=== PATIENT | male | born 1965 | race Caucasian/White ===

== ENCOUNTER 2019-11-02 16:01 | Observation (INO) ==
[2019-11-02] MEDS ORDERED: 0.9 % Sodium Chloride 1,000 ML IVC ONE (17:23)
[2019-11-02] MEDS ORDERED: Ipratropium/Albuterol Neb 3 ML IH ONE (17:23)
[2019-11-02] MEDS ORDERED: Clindamycin 600 MG/50 ML 600 MG/50 ML IV.SOLN IVPB STA (17:24)
[2019-11-02 17:48] LABS: Alanine Aminotransferase 40 Units/L (7-52); Albumin 4.2 g/dL (3.5-5.7); Albumin/Globulin Ratio 1.6 (1.1-2.2); Alkaline Phosphatase 69 Units/L (34-104); Aspartate Amino Transferase 36 Units/L (13-39); BUN/Creatinine Ratio 19 (6-26); Bilirubin,Total 0.6 mg/dL (0.3-1.0); Blood Urea Nitrogen 22 mg/dL (6-20); Calcium 9.3 mg/dL (8.6-10.3); Carbon Dioxide 26 mEq/L (23-29); Chloride 104 mEq/L (98-107); Globulin 2.7 g/dL (2.4-3.5); Glucose 144 mg/dL (70-105); Osmolality,Calculated 294 (280-300); Potassium 3.7 mEq/L (3.5-5.1); Sodium 139 mEq/L (136-145); Total Protein 6.9 g/dL (6.4-8.9); Troponin I 0.03 ng/mL (< 0.04); eGFR For African Americans > 60 (> 60); eGFR For Non-African Americans > 60 (> 60)
[2019-11-02 18:04] LABS: Basophils % 0.2 %; Eosinophils % 0.1 %; Hematocrit 51.1 % (37.5-50.1); Hemoglobin 16.9 g/dL (12.9-16.9); Immature Granulocytes % 0.4 % (0-4); Lymphocytes % 5.3 %; Mean Corpuscular HGB Conc 33.1 g/dL (31.6-35.5); Mean Corpuscular Hemoglobin 30.2 pg (28.0-33.3); Mean Corpuscular Volume 91.3 fL (83.0-100.0); Mean Platelet Volume 11.9 fL (9.4-12.4); Monocytes # 0.6 K/mcL (0.0-1.3); Monocytes % 3.1 %; Neutrophils # 16.6 K/mcL (1.6-8.9); Platelet Count 149 K/mcL (140-400); Red Cell Distribution Width 12.6 % (11.5-14.5); Segmented Neutrophils % 90.9 %; White Blood Count 18.2 K/mcL (4.3-11.1)
[2019-11-02] MEDS ORDERED: cefTRIAXone 1,000 MG in Water for inj. (sterile) 10 ML IVP ONE (18:32)
[2019-11-02] MEDS ORDERED: Azithromycin 500 MG in 0.9 % Sodium Chloride 250 ML IVPB ONE (18:32)
[2019-11-02] MEDS ORDERED: Naloxone 0.4 MG/ML INJ IVP PRN (22:30)
[2019-11-02] MEDS ORDERED: Nicotine 21 MG PATCH.TD24 TD PRN (22:37)
[2019-11-02] MEDS: 0.9 % Sodium Chloride 1,000 ML IVC SCH (23:06)
[2019-11-03 05:03] LABS: Hematocrit 47.8 % (37.5-50.1); Mean Corpuscular Volume 94.5 fL (83.0-100.0); Red Blood Count 5.06 M/mcL (4.19-5.50)
[2019-11-03 05:04] LABS: Hemoglobin 15.3 g/dL (12.9-16.9); Immature Platelets 7.5 % (1.1-6.1); Mean Corpuscular Hemoglobin 30.2 pg (28.0-33.3); Mean Platelet Volume 11.5 fL (9.4-12.4); Red Cell Distribution Width 12.8 % (11.5-14.5); White Blood Count 12.8 K/mcL (4.3-11.1)
[2019-11-03 05:20] LABS: BUN/Creatinine Ratio 18 (6-26); Blood Urea Nitrogen 19 mg/dL (6-20); Calcium 8.5 mg/dL (8.6-10.3); Carbon Dioxide 26 mEq/L (23-29); Chloride 108 mEq/L (98-107); Glucose 111 mg/dL (70-105); Osmolality,Calculated 291 (280-300); Potassium 4.2 mEq/L (3.5-5.1); Sodium 139 mEq/L (136-145); eGFR For African Americans > 60 (> 60); eGFR For Non-African Americans > 60 (> 60)
[2019-11-03] MEDS: *HR* Heparin 5,000 UNIT/ML VIAL SQ SCH ×2 (05:54→17:26)
[2019-11-03 07:55] LABS: Estimated Average Glucose 140 mg/dl
[2019-11-03] MEDS: Clindamycin 600 MG/50 ML 600 MG/50 ML IV.SOLN IVPB SCH ×3 (07:55→23:42)
[2019-11-03] MEDS: 0.9 % Sodium Chloride 1,000 ML IVC SCH (07:55)
[2019-11-03] MEDS: Aspirin Enteric Coated 81 MG Tablet PO SCH (07:56)
[2019-11-03] MEDS: Furosemide 40 MG TABLET PO SCH (07:56)
[2019-11-03] MEDS ORDERED: cefTRIAXone 1,000 MG in Water for inj. (sterile) 10 ML IVP SCH (09:00)
[2019-11-03] MEDS: Acetaminophen 325 MG TABLET PO PRN ×2 (11:06→19:59)
[2019-11-03] MEDS ORDERED: Azithromycin 500 MG in D5% in Water 250 ML IVPB SCH (21:00)
[2019-11-04] MEDS: *HR* Heparin 5,000 UNIT/ML VIAL SQ SCH ×2 (05:44→17:06)
[2019-11-04] MEDS: Acetaminophen 325 MG TABLET PO PRN ×3 (05:59→23:25)
[2019-11-04] MEDS: Aspirin Enteric Coated 81 MG Tablet PO SCH (08:28)
[2019-11-04] MEDS: Furosemide 40 MG TABLET PO SCH (08:28)
[2019-11-04] MEDS: Clindamycin 600 MG/50 ML 600 MG/50 ML IV.SOLN IVPB SCH ×3 (08:28→23:23)
[2019-11-04] MEDS ORDERED: cefTRIAXone 2,000 MG in Water for inj. (sterile) 20 ML IVP SCH (09:00)
[2019-11-04] MEDS ORDERED: cefTRIAXone 2,000 MG in Water for inj. (sterile) 10 ML IVP SCH (09:00)
[2019-11-05] MEDS: *HR* Heparin 5,000 UNIT/ML VIAL SQ SCH ×2 (04:02→17:43)
[2019-11-05] MEDS: Acetaminophen 325 MG TABLET PO PRN (05:35)
[2019-11-05] MEDS: Furosemide 40 MG TABLET PO SCH (08:40)
[2019-11-05] MEDS: Clindamycin 600 MG/50 ML 600 MG/50 ML IV.SOLN IVPB SCH ×2 (08:40→17:43)
[2019-11-05] MEDS: Aspirin Enteric Coated 81 MG Tablet PO SCH (08:40)
[2019-11-05 09:06] LABS: Basophils % 0.5 %; Eosinophils # 0.3 K/mcL (0.0-0.6); Eosinophils % 3.6 %; Hematocrit 46.4 % (37.5-50.1); Hemoglobin 15.4 g/dL (12.9-16.9); Immature Granulocytes % 0.5 % (0-4); Lymphocytes # 1.7 K/mcL (0.6-4.6); Lymphocytes % 22.3 %; Mean Corpuscular HGB Conc 33.2 g/dL (31.6-35.5); Mean Corpuscular Hemoglobin 30.1 pg (28.0-33.3); Mean Corpuscular Volume 90.8 fL (83.0-100.0); Mean Platelet Volume 11.6 fL (9.4-12.4); Monocytes # 0.5 K/mcL (0.0-1.3); Monocytes % 6.3 %; Neutrophils # 5.2 K/mcL (1.6-8.9); Platelet Count 160 K/mcL (140-400); Red Blood Count 5.11 M/mcL (4.19-5.50); Red Cell Distribution Width 12.4 % (11.5-14.5); Segmented Neutrophils % 66.8 %; White Blood Count 7.8 K/mcL (4.3-11.1)
[2019-11-05 09:08] LABS: BUN/Creatinine Ratio 22 (6-26); Blood Urea Nitrogen 18 mg/dL (6-20); Calcium 9.1 mg/dL (8.6-10.3); Carbon Dioxide 28 mEq/L (23-29); Chloride 104 mEq/L (98-107); Glucose 125 mg/dL (70-105); Osmolality,Calculated 289 (280-300); Potassium 4.1 mEq/L (3.5-5.1); Sodium 138 mEq/L (136-145); eGFR For African Americans > 60 (> 60); eGFR For Non-African Americans > 60 (> 60)
[2019-11-05 18:50] VITALS: BP 131/83
== END 2019-11-05 19:21 | disposition home or self-care (01) ==
LOC: 2NENU 16:01 → EMEROOARM 16:01 → SUATTDRO 19:28 → 2NENU 21:05 → 3BNU 11-04 21:09
PROVIDERS: ADMIT Internal Medicine; ATTEND Internal Medicine